=== PATIENT | male | born 1950 | race Two or more races ===

== ENCOUNTER 2020-11-19 16:20 | Emergency (ER) | payer OTHER ==
[~2020-11-19] VITALS: Ht 180.3 cm; Wt 77.1 kg
[2020-11-19 17:50] LABS: Basophils # (auto) 0 10 ^3/uL (0-0.2); Basophils % (auto) 0.4 % (0.0-2.0); Eosinophils # (auto) 0 10 ^3/uL (0-0.8); Eosinophils % (auto) 0.1 % (0.0-7.0); Hematocrit 37.8 % (41.0-53.0); Hemoglobin 13.6 g/dL (13.5-17.5); Lymphocytes # (auto) 0.9 10 ^3/uL (0.4-5.4); Lymphocytes % (auto) 12.9 % (10.0-50.0); Mean Corpuscular Hemoglobin 31.5 pg (28.0-32.0); Mean Corpuscular Hgb Conc. 35.9 g/dL (32.0-36.0); Mean Corpuscular Volume 87.7 fL (80.0-100.0); Monocytes # (auto) 0.6 10 ^3/uL (0-1.3); Monocytes % (auto) 8.1 % (0.0-12.0); Neutrophils # (auto) 5.4 10 ^3/uL (1.6-8.6); Neutrophils % (auto) 78.5 % (37.0-80.0); Red Blood Cells 4.31 10^6/uL (4.5-5.90); Red Cell Distribution Width 13.4 % (11.8-14.3); White Blood Cell 6.9 10^3/uL (4.4-10.8)
[2020-11-19 18:06] LABS: Anion Gap 9 (5-15); Blood Urea Nitrogen 14 mg/dL (7-18); Calcium 8.2 mg/dL (8.5-10.1); Carbon Dioxide 25 mmol/L (21-32); Chloride 95 mmol/L (98-107); Glucose 263 mg/dL (74-106); Potassium 3.7 mmol/L (3.5-5.1); Sodium 129 mmol/L (136-145)
[2020-11-19 18:10] LABS: BUN/Creatinine Ratio 14.4; GFR African American 99 mL/min; GFR Non-African American 82 mL/min; Lactic Acid w/Reflex 2.1 mmol/L (0.4-2.0)
[2020-11-19 18:13] LABS: Alanine Aminotransferase 34 U/L (16-61); Alkaline Phosphatase 87 U/L (45-117); Aspartate Aminotransferase 25 U/L (15-37); Bilirubin, Total 0.6 mg/dL (0.2-1.0); Total Protein 8.4 g/dL (6.4-8.2)
[2020-11-19] MEDS ORDERED: methylPREDNISolone SOD SUCC 125 MG/2 ML VL IV ONE (19:00)
[2020-11-19] MEDS ORDERED: SODIUM CHLORIDE 0.9% 1,000 ML IV ONE (19:00)
[2020-11-19] MEDS ORDERED: DOXYCYCLINE 100 MG TAB/CAP PO ONE (19:00)
[2020-11-19] MEDS ORDERED: cefTRIAXone 1GM/50ML D5W 50 ML IV ONE (19:00)
[2020-11-19] MEDS ORDERED: SODIUM CHLORIDE 0.9% 500 ML IV ONE (19:00)
[2020-11-19] MEDS ORDERED: ACETAMINOPHEN 325 MG TAB PO ONE (19:15)
[2020-11-19 21:20] VITALS: BP 148/78
== END 2020-11-19 21:47 | disposition home or self-care (01) ==
LOC: ER 16:20
DX: U07.1 COVID-19 (principal); J12.82 Pneumonia due to coronavirus disease 2019; E86.0 Dehydration; E11.9 Type 2 diabetes mellitus without complications
CPT/HCPCS: 36415; 71045; 80053; 82728; 83605; 83880; 84484; 85025; 85379; 87040; 87426; 93005; 96365; 96375; 99285; J0696; J2930; J7030